=== PATIENT | female | born 1985 | race Caucasian/White ===

== ENCOUNTER 2016-12-10 22:17 | Emergency (ER) | payer OTHER ==
--- NOTE | 2016-12-10 22:37 | ED ---
General Adult HPI - General Source: patient Mode of arrival: ambulatory Limitations: no limitations <Stephenie Lewis - Last Filed: 12/11/16 04:13> <Ty Lundberg - Last Filed: 12/15/16 09:36> - General Chief complaint: Extremity Injury, Lower Stated complaint: left shoulder injury Time Seen by Provider: 12/10/16 22:27 - History of Present Illness Initial comments: 31-year-old female patient presents to emergency department today with chief complaint of left shoulder pain and deformity. Patient states around 6 PM she was playing baseball when she jumped for a ball, and fell hitting her elbow on the ground causing pain in her shoulder. She states that she was having some pain and difficulty with moving it but thought it was just sore. She states later this evening when she looked at it appeared to be dislocated. She said she has had surgery to the shoulder before and has had a dislocation in the past x5. She is currently a resident of [facility]. States she is to be discharged next Monday. She states that she is in treatment for alcohol dependence. That she is having some mild numbness and tingling to the fingers on the left hand. She denies hitting her head or losing consciousness during the fall. She denies any other injuries. Patient denies any headache, neck pain, back pain, chest pain, shortness of breath, dizziness, weakness, abdominal pain, nausea, vomiting, or difficulties with bowel movements or urination. (Stephenie Lewis) - Related Data Home Medications Medication Instructions Recorded Confirmed levETIRAcetam [Keppra] 500 mg PO Q12HR 10/15/13 10/15/13 Allergies Allergy/AdvReac Type Severity Reaction Status Date / Time etomidate Allergy Unknown Verified 12/10/16 22:25 Sulfa (Sulfonamide Allergy Unknown Verified 12/10/16 22:25 Antibiotics) sulfamethoxazole Allergy Unknown Verified 12/10/16 22:25 [From Bactrim] trimethoprim [From Bactrim] Allergy Unknown Verified 12/10/16 22:25 Review of Systems ROS Other: All systems not noted in ROS Statement are negative. <Stephenie Lewis - Last Filed: 12/11/16 04:13> ROS Other: All systems not noted in ROS Statement are negative. <Ty Lundberg - Last Filed: 12/15/16 09:36> ROS Statement: Those systems with pertinent positive or pertinent negative responses have been documented in the HPI. Past Medical History Additional Past Medical History / Comment(s): epilepsy, ITP History of Any Multi-Drug Resistant Organisms: None Reported Past Surgical History: Orthopedic Surgery Additional Past Surgical History / Comment(s): kidney stent Past Psychological History: No Psychological Hx Reported Smoking Status: Current every day smoker Past Alcohol Use History: None Reported Past Drug Use History: None Reported <EsmesiriStephenie M - Last Filed: 12/11/16 04:13> General Exam Limitations: no limitations General appearance: alert, in no apparent distress, other (Is a well-developed, well-nourished adult female patient no acute distress. Vital signs upon presentation temperature 90.8F, pulse 94, respirations 16, blood pressure 138/ 91, pulse ox 99% on room air.) Head exam: Present: atraumatic, normocephalic, normal inspection Eye exam: Present: normal appearance, PERRL, EOMI. Absent: scleral icterus, conjunctival injection, periorbital swelling ENT exam: Present: normal exam, normal oropharynx, mucous membranes moist Neck exam: Present: normal inspection, full ROM, other (Nontender, no step-off, no deformity to firm midline palpation of the posterior cervical spine. Full range of motion without pain or limitation.). Absent: tenderness, meningismus, lymphadenopathy Respiratory exam: Present: normal lung sounds bilaterally. Absent: respiratory distress, wheezes, rales, rhonchi, stridor Cardiovascular Exam: Present: regular rate, normal rhythm, normal heart sounds. Absent: systolic murmur, diastolic murmur, rubs, gallop, clicks Extremities exam: Present: tenderness (. tenderness over the left shoulder. ), normal capillary refill, other (That strength to the left upper extremity. Skin is pink, warm, and dry. Obvious deformity noted to the left shoulder. Radial pulses are intact and 2+ bilaterally.). Absent: full ROM (Limited range of motion to the left shoulder), pedal edema, joint swelling, calf tenderness Back exam: Present: normal inspection, other (Nontender, no step-off, no deformity to firm midline palpation of the thoracic and lumbar vertebrae. Full range of motion without pain or limitation.). Absent: tenderness, vertebral tenderness Neurological exam: Present: alert, oriented X3, CN II-XII intact Psychiatric exam: Present: normal affect, normal mood Skin exam: Present: warm, dry, intact, normal color. Absent: rash <Stephenie Lewis - Last Filed: 12/11/16 04:13> Procedures <Stephenie Lewis - Last Filed: 12/11/16 04:13> - Orthopedic Joint Reduction Joint #1 Consent Obtained: written consent Time Out Performed: Yes Side: left Joint Reduction Location: shoulder Analgesia: procedural sedation Shoulder Technique Used (if applicable): external rotation Post-Reduction Neuro Exam: intact Post-Reduction Vascular Exam: intact Post Reduction X-Ray Obtained: Yes Post Reduction X-Ray Results: reduced Splint Applied: Yes (Sling) Patient Tolerated Procedure: well, no complications - Procedural Sedation Procedural Sedation Start Time: 23:22 Procedural Sedation Stop Time: 23:40 Indications: fracture/dislocation reduction ASA Class: I Mallampati Airway Score: 2 Preparation: cardiac cath rn applied, pulse oximeter, supplemental O2 applied, suction/airway equipment at bedside, IV secured Complications: none Patient Tolerated Procedure: well, no complications <Ty Lundberg - Last Filed: 12/15/16 09:36> - Procedural Sedation Additional Comments: Propofol given in aliquots as per the chart, to achieve sedation level. (Ty Lundberg) Medical Decision Making - Radiology Data Radiology results: report reviewed, image reviewed <Stephenie Lewis - Last Filed: 12/11/16 04:13> <Ty Lundberg - Last Filed: 12/15/16 09:36> - Medical Decision Making 31-year-old female patient presents to emergency department today for evaluation of left shoulder pain and deformity. Initial x-ray did show an anterior dislocation of the left humeral head. Conscious sedation was performed by my attending Dr. Montalvo and reduction of the left humerus was achieved. Postreduction x-ray shows reduction of the dislocation. Patient was placed in a sling. She will be discharged home with instructions take Tylenol or Motrin for pain control. She is instructed to apply ice 20 minutes at a time at least 4 times daily. She is instructed to follow-up with orthopedics in one to 2 days for recheck. She is instructed to return here immediately for any new, worsening, or concerning symptoms. Patient verbalizes understanding and agrees with this plan. (Stephenie Lewis) I saw this patient in conjunction with the physician registrar assistant. I performed independent history and physical exam. Agree with case management. (Ty Lundberg) - Radiology Data 2 views of the left shoulder shows an anterior dislocation of the glenohumeral joint. No acute fracture. Impression by Dr. Puga shows anterior dislocation of the glenohumeral joint. One view of the left shoulder shows no fracture. The collateral humeral joint and now appears in satisfactory alignment. Soft tissues are unremarkable. Impression by Dr. Puga shows interval reduction of previous anterior glenohumeral joint dislocation. (Stephenie Lewis) Disposition Time of Disposition: 00:14 <Stephenie Lewis - Last Filed: 12/11/16 04:13> <Ty Lundberg - Last Filed: 12/15/16 09:36> Clinical Impression: Dislocation of left shoulder joint Disposition: HOME SELF-CARE Condition: Good Instructions: Shoulder Dislocation (ED) Additional Instructions: Apply ice to the left shoulder 20 minutes at a time at least 4 times daily. Use sling until follow-up with orthopedics. Take Tylenol or ibuprofen for pain control. Follow up with her primary care physician for recheck in 1-2 days. Return here immediately for any new, worsening, or concerning symptoms. Referrals: Cristi Corey DO [Primary Care Provider] - 1-2 days Aric Bailey MD [Medical Doctor] - 1-2 days
[2016-12-10] MEDS ORDERED: PROPOFOL 1,000 MG/100 ML VIAL IV ONE (23:15)
[2016-12-10] MEDS ORDERED: PROPOFOL 10 MG/ML 20 ML VIAL IV ONE (23:30)
--- NOTE | 2016-12-10 23:34 | XR ---
EXAM: XR Left Shoulder Complete, 2 or More Views. CLINICAL HISTORY: Reason: Pain TECHNIQUE: Two or more views of the left shoulder. COMPARISON: No relevant prior studies available. FINDINGS: Bones: Unremarkable. No acute fracture. Joints: Anterior dislocation of the glenohumeral joint. Soft tissues: Unremarkable. IMPRESSION: Anterior dislocation of the glenohumeral joint.
[2016-12-10 23:47] VITALS: RESP 18
[2016-12-11 00:05] VITALS: BP 118/57; PULSE 72; TEMP 97.4
--- NOTE | 2016-12-11 00:42 | XR ---
EXAM: XR Left Shoulder Complete, 2 or More Views. CLINICAL HISTORY: Reason: post reduction TECHNIQUE: Two or more views of the left shoulder. COMPARISON: Earlier study of same date FINDINGS: Bones: No fracture is seen. Joints: The glenohumeral joint now appears in satisfactory alignment. Soft tissues: Unremarkable. IMPRESSION: Interval reduction of previous anterior glenohumeral joint dislocation.
--- NOTE | 2016-12-13 05:31 | PCN ---
Documentation Clarification OP Dear Stephenie Lewis M Please do addendum to ED report for missing sedation stop time. Thank you, Yuan Abraham Spa Manager If you have any questions, please contact Informal Waiter/Waitress at [phone] [facility]
== END 2016-12-11 00:33 | disposition home or self-care (01) ==
LOC: EC 22:17
DX: S43.015A Anterior dislocation of left humerus, initial encounter (principal); Z79.899 Other long term (current) drug therapy; Z88.2 Allergy status to sulfonamides; Z88.8 Allergy status to other drugs, medicaments and biological substances; W01.10XA Fall on same level from slipping, tripping and stumbling with subsequent striking against unspecified object, initial encounter; Y93.64 Activity, baseball
CPT/HCPCS: 99283 ×2; 23650 ×2; 99152 ×2; 73030; 73020; J2704